=== PATIENT | female | born 1960 | race Caucasian/White ===

== ENCOUNTER 2020-09-19 14:54 | Emergency (ER) | payer BC ==
--- NOTE | 2020-09-19 15:05 | EDM.PDOC ---
ED HPI GENERAL MEDICAL PROBLEM - General Chief Complaint: Cardiovascular Problem Stated Complaint: FAST HEART RATE/DIZZY Time Seen by Provider: 09/19/20 15:05 Source of Information: Reports: Patient History Limitations: Reports: No Limitations - History of Present Illness INITIAL COMMENTS - FREE TEXT/NARRATIVE: Sadaf is a 60 yo female with PMH of fibromyalgia and anxiety who presents with c/o elevated heart rate. Reports this afternoon she felt kind of "whoozy" and checked her heart rate and it was 156. She reports she was not lightheaded, just felt "off." Does have hx of sinus tachycardia. Reports 2 years ago she had Holter monitor, EKG and echocardiogram, all of which came back normal. Reports since that time she has intermittently had elevated pulse, mostly during the night. She denies any recent increased stress/anxiety at this time. Does report "anxious" stomach but otherwise is feeling well. Denies any chest pain, shortness of breath, nausea, vomiting, diarrhea, dizziness, syncope, irregular heart rate. She has noticed more constipation and weight gain, so is questioning if maybe her thyroid is off. Also reports intermittently has been having hives off and on for the last 2 months. Has not had any hives recently. Onset: Today Onset Date: 09/19/20 Onset Time: 13:30 Duration: Constant Location: Reports: Chest Improves with: Reports: None Worsens with: Reports: None Associated Symptoms: Denies: Confusion, Chest Pain, Cough, cough w sputum, Diaphoresis, Fever/Chills, Headaches, Loss of Appetite, Malaise, Nausea/Vomiting, Rash, Seizure, Shortness of Breath, Syncope, Weakness - Related Data Allergies Allergy/AdvReac Type Severity Reaction Status Date / Time Penicillins Allergy Cannot Verified 09/19/20 14:58 Remember Sulfa (Sulfonamide Allergy Cannot Verified 09/19/20 14:58 Antibiotics) Remember Tetracyclines Allergy Cannot Verified 09/19/20 14:58 Remember Home Meds: Home Meds Multivitamin [Multivitamins] 1 cap PO DAILY 09/06/16 [History] [employer] Fatty Acids [Fish Oil] 1,000 mg PO DAILY 09/06/16 [History] Sertraline HCl [Zoloft] 100 mg PO DAILY 09/06/16 [History] Calc/D3/Mag/Zn/Timothy/Kumar/[place] [Calcium 600 MG Plus Vit D] 1 each PO BID 09/19/20 [History] Cholecalciferol (Vitamin D3) [Vitamin D3] 1,000 unit PO DAILY 09/19/20 [History] ED ROS GENERAL - Review of Systems Review Of Systems: Comprehensive ROS is negative, except as noted in HPI. ED EXAM, GENERAL - Physical Exam Exam: See Below Exam Limited By: No Limitations General Appearance: Alert, WD/WN, No Apparent Distress Eye Exam: Bilateral Eye: EOMI, PERRL Ears: Normal External Exam, Normal Canal, Hearing Grossly Normal, Normal TMs Nose: Normal Inspection, Normal Mucosa, No Blood Throat/Mouth: Normal Inspection, Normal Lips, Normal Teeth, Normal Gums, Normal Oropharynx, Normal Voice, No Airway Compromise Head: Atraumatic, Normocephalic Neck: Normal Inspection, Supple, Non-Tender, Full Range of Motion Respiratory/Chest: No Respiratory Distress, Lungs Clear, Normal Breath Sounds, No Accessory Muscle Use, Chest Non-Tender Cardiovascular: Normal Peripheral Pulses, No Edema, No Murmur, Tachycardia, Other (Regular Rhythm) Peripheral Pulses: 2+: Dorsalis Pedis (L), Dorsalis Pedis (R) GI/Abdominal: Normal Bowel Sounds, Soft, Tender (mild tenderness periumbilical). No: Guarding, Rigid, Rebound Back Exam: Normal Inspection, Full Range of Motion. No: CVA Tenderness (L), CVA Tenderness (R) Extremities: Normal Inspection, Normal Range of Motion, Non-Tender, Normal Capillary Refill, No Pedal Edema Neurological: Alert, Oriented, CN II-XII Intact, Normal Cognition, Normal Gait, Normal Reflexes, No Motor/Sensory Deficits Psychiatric: Normal Affect, Normal Mood Skin Exam: Warm, Dry, Intact, Normal Color, No Rash Lymphatic: No Adenopathy #1 Interpretation EKG Date: 09/19/20 Rhythm: Other (sinus tachycardia) [place]: Normal P-Wave: Present QRS: Normal ST-T: Normal QT: Normal Comparison: No Change Course - Vital Signs Last Recorded V/S: Last Vital Signs Temp 98.6 F 09/19/20 15:16 Pulse 125 H 09/19/20 15:16 Resp 20 09/19/20 15:16 BP 153/77 H 09/19/20 15:16 Pulse Ox 99 09/19/20 15:16 - Orders/Labs/Meds Labs: Laboratory Tests 09/19/20 09/19/20 Range/Units 15:05 15:05 WBC 9.9 (5.0-10.0) 10^3/uL RBC 4.55 (4.00-5.50) 10^6/uL Hgb 14.0 (12.0-16.0) g/dL Hct 40.8 (37.0-47.0) % MCV 89.7 (82.0-94.0) fL MCH 30.8 (27.0-32.0) pg MCHC 34.3 (33.0-38.0) g/dL RDW Coeff of Preethi 12.7 (11.0-15.0) % Plt Count 234 (150-400) 10^3/uL Neut % (Auto) 53.1 (35-85) % Lymph % (Auto) 40.2 (10-55) % [place] % (Auto) 5.7 (0-16) % Eos % (Auto) 0.5 (0-5) % Baso % (Auto) 0.5 (0-3) % Neut # (Auto) 5.23 (1.80-7.00) 10^3/uL Lymph # (Auto) 3.96 (1.00-4.80) 10^3/uL [place] # (Auto) 0.56 (0.00-0.80) 10^3/uL Eos # (Auto) 0.05 (0.00-0.45) 10^3/uL Baso # (Auto) 0.05 10^3/uL Sodium 143 (136-145) mEq/L Potassium 3.3 L (3.5-5.0) mEq/L Chloride 103 (98-106) mEq/L Carbon Dioxide 26 (21-32) mmol/L BUN 17 (7-18) mg/dL Creatinine 0.7 (0.6-1.0) mg/dL Est Cr Clr Drug Dosing TNP Estimated GFR (MDRD) > 60 (>=60) mL/min Glucose 134 H (75-99) mg/dL Calcium 9.5 (8.4-10.1) mg/dL Troponin I < 0.017 (0.00-0.06) ng/mL C-Reactive Protein 0.2 (0.2-0.8) mg/dL TSH, Ultra Sensitive 3.75 (0.36-5.60) uIU/mL Meds: Medications Discontinued Medications Generic Name Dose Route Start Last Admin Trade Name Carlos PRN Reason Stop Dose Admin Potassium Chloride 40 meq 09/19/20 15:34 09/19/20 15:41 Klor-Con 10 PO 09/19/20 15:35 40 meq ONETIME ONE Administration - Re-Assessments/Exams Free Text/Narrative Re-Assessment/Exam: 09/19/20 15:33 Labs all stable except potassium slightly low at 3.3. Will replace with 40 meq CL PO. Will keep patient in extended ED for continued cardiac monitoring. Departure - Departure Time of Disposition: 17:04 Disposition: Home, Self-Care 01 Condition: Good Clinical Impression: Sinus tachycardia, Hypokalemia Instructions: Hypokalemia, Sinus Tachycardia Referrals: Kelsie Morocho [employer] SLIDE OPERATOR [Primary Care Provider] - Forms: ED Department Discharge Additional Instructions: - Increase dietary intake of potassium rich foods - Recommend recheck potassium in 1 week - Follow up with PCP in next 5-7 days if symptoms persist or sooner if symptoms worsen - Return to ED for emergent needs Sepsis Event Note (ED) - Focused Exam Vital Signs: Vital Signs Temp Pulse Resp BP Pulse Ox 09/19/20 15:16 98.6 F 125 H 20 153/77 H 99 - Problem List & Annotations (1) Hypokalemia SNOMED Code(s): 76736965 Code(s): E87.6 - HYPOKALEMIA Status: Acute (2) Sinus tachycardia SNOMED Code(s): 31118725 Code(s): R00.0 - TACHYCARDIA, UNSPECIFIED Status: Acute - Problem List Review Problem List Initiated/Reviewed/Updated: Yes - Assessment/Plan Assessment:: Sinus Tachycardia Hypokalemia Plan: Patient presents with new onset tachycardia. Reports it was as high as 156 bpm on her apple watch prior to arrival. Upon arrival HR at 126. EKG reveals sinus tachycardia at rate of 126. She denies any other symptoms or recent illness. Does have anxiety and feels this may be contributing. Labs stable except potassium low at 3.3. Was given 40 meq KCL. Recommend increasing dietary intake of potassium and recheck K in 7 days. Patient was kept for cardiac monitoring in extended ED. Patient remained NSR throught stay. At time of discharge pulse was 90s. She is advised to follow up with her PCP for recheck if tachycardiac worsens or persists. She verbalized understanding and was agreeable with plan. Discharged home in satisfactory condition.
[2020-09-19 15:17] VITALS: BP 153/77; PULSE 125
[2020-09-19 15:28] LABS: CHLORIDE,CL 103 mEq/L (98-106); SODIUM,NA 143 mEq/L (136-145)
[2020-09-19] MEDS ORDERED: Potassium Chloride 10 MEQ Tab.ER PO ONE (15:34)
== END 2020-09-19 17:30 | disposition home or self-care (01) ==
LOC: CC.ED 14:54
DX: E87.6 Hypokalemia (principal); R00.0 Tachycardia, unspecified; Z88.0 Allergy status to penicillin; Z88.2 Allergy status to sulfonamides; Z88.1 Allergy status to other antibiotic agents
CPT/HCPCS: 36415; 80048; 84443; 84484; 85025; 86140; 93005; 99285-25; A9270-GY

== ENCOUNTER 2021-03-27 07:29 | Emergency (ER) | payer BC ==
[2021-03-27] MEDS ORDERED: Sodium Chloride 0.9% 1,000 ML IV SCH (08:00)
--- NOTE | 2021-03-27 08:09 | EDM.PDOC ---
ED HPI GENERAL MEDICAL PROBLEM - General Chief Complaint: Gastrointestinal Problem Stated Complaint: diarrhea and dehydration Time Seen by Provider: 03/27/21 07:55 Source of Information: Reports: Patient History Limitations: Reports: No Limitations - History of Present Illness INITIAL COMMENTS - FREE TEXT/NARRATIVE: This patient is a 60 year old female that presents to the ER. She reports that she has had abdominal cramping, diarrhea, and fever for 3 days. Patient reports that her daughter had similar symptoms 2 days ago, but hers resolved. Patient reports that hers has not resolved. She reports that this morning she felt weak while on the toilet while having a BM. She reports she is having diarrhea about every 2 hours. She reports her fever at home has been running 100.2 - 100.4. Patient denies nausea or vomiting. Onset Date: 03/24/21 Duration: Day(s): (3) Location: Reports: Abdomen Quality: Reports: Other (cramping) Severity: Mild Improves with: Reports: None Worsens with: Reports: None Associated Symptoms: Reports: Weakness (generally weak). Denies: Confusion, Chest Pain, Cough, cough w sputum, Diaphoresis, Fever/Chills, Headaches, Loss of Appetite, Malaise, Nausea/Vomiting, Rash, Seizure, Shortness of Breath, Syncope Abdominal Pain Score (Numeric/FACES): 9 - Related Data Allergies Allergy/AdvReac Type Severity Reaction Status Date / Time coconut Allergy Hives Verified 03/27/21 07:46 Penicillins Allergy Cannot Verified 03/27/21 07:46 Remember Sulfa (Sulfonamide Allergy Cannot Verified 03/27/21 07:46 Antibiotics) Remember Tetracyclines Allergy Cannot Verified 03/27/21 07:46 Remember Home Meds: Home Meds Multivitamin [Multivitamins] 1 cap PO DAILY 09/06/16 [History] [place]-3 Fatty Acids [Fish Oil] 1,000 mg PO DAILY 09/06/16 [History] Sertraline HCl [Zoloft] 100 mg PO DAILY 09/06/16 [History] Calc/D3/Mag/Zn/Timothy/Kumar/[place] [Calcium 600 MG Plus Vit D] 1 each PO BID 09/19/20 [History] Cholecalciferol (Vitamin D3) [Vitamin D3] 1,000 unit PO DAILY 09/19/20 [History] Past Medical History Other Cardiovascular History: Hx of fast heart rate Psychiatric History: Reports: Anxiety - Past Surgical History Female Surgical History: Reports: D&C Social & Family History - Family History Family Medical History: Unobtainable - Tobacco Use Tobacco Use Status *Q: Never Tobacco User - Recreational Drug Use Recreational Drug Use: No ED ROS GENERAL - Review of Systems Review Of Systems: See Below Constitutional: Reports: No Symptoms HEENT: Reports: No Symptoms Respiratory: Reports: No Symptoms Cardiovascular: Reports: No Symptoms Endocrine: Reports: No Symptoms GI/Abdominal: Reports: Abdominal Pain (cramping), Diarrhea. Denies: Nausea, Vomiting : Reports: No Symptoms Musculoskeletal: Reports: No Symptoms Skin: Reports: No Symptoms Neurological: Reports: No Symptoms Psychiatric: Reports: No Symptoms Hematologic/Lymphatic: Reports: No Symptoms Immunologic: Reports: No Symptoms ED EXAM, GI/ABD - Physical Exam Exam: See Below Exam Limited By: No Limitations General Appearance: Alert, WD/WN, No Apparent Distress Eyes: Bilateral: Normal Appearance Ears: Normal External Exam, Normal Canal, Hearing Grossly Normal, Normal TMs Nose: Normal Inspection, Normal Mucosa, No Blood Throat/Mouth: Normal Inspection, Normal Lips, Normal Teeth, Normal Gums, Normal Oropharynx, Normal Voice, No Airway Compromise Head: Atraumatic, Normocephalic Neck: Normal Inspection, Supple, Non-Tender, Full Range of Motion Respiratory/Chest: No Respiratory Distress, Lungs Clear, Normal Breath Sounds, No Accessory Muscle Use Cardiovascular: No Edema, Tachycardia (1204 on exam) GI/Abdominal Exam: Soft, Non-Tender, Abnormal Bowel Sounds (hyperactive). No: Guarding, Rigid, Rebound, Tender (Female) Exam: Deferred Back Exam: Normal Inspection, Full Range of Motion. No: CVA Tenderness (L), CVA Tenderness (R) Extremities: Normal Inspection, Normal Range of Motion, Non-Tender, No Pedal Edema, Normal Capillary Refill Neurological: Alert, Oriented, Normal Cognition Psychiatric: Normal Affect, Normal Mood Skin Exam: Warm, Dry, Intact, Normal Color, No Rash Lymphatic: No Adenopathy Course - Vital Signs Last Recorded V/S: Last Vital Signs Temp 98.2 F 03/27/21 07:29 Pulse 99 03/27/21 08:30 Resp 18 03/27/21 08:30 BP 135/78 03/27/21 08:30 Pulse Ox 99 03/27/21 08:30 - Orders/Labs/Meds Orders: Active Orders 24 hr Category Date Time Status C DIFFICILE BY DNA [RM] Stat Lab 03/27/21 08:49 Received STOOL CULTURE [MREF] Stat Lab 03/27/21 08:49 Received WBC, STOOL [OP] Stat Lab 03/27/21 08:49 Received Sodium Chloride 0.9% [Normal Saline] 1,000 ml Med 03/27/21 08:00 Active IV ASDIRECTED Isolation [COMM] Stat Oth 03/27/21 08:05 Active Medication Orders Sodium Chloride (Normal Saline) 1,000 mls @ 999 mls/hr IV ASDIRECTED AILYN Last Admin: 03/27/21 08:03 Dose: 999 mls/hr Documented by: GARY Labs: Laboratory Tests 03/27/21 03/27/21 03/27/21 Range/Units 08:03 08:12 08:12 WBC 4.7 (4.0-11.0) 10^3/uL RBC 4.30 (4.00-5.50) x10^6/uL Hgb 13.0 (12.0-16.0) g/dL Hct 38.0 (37.0-47.0) % MCV 88.4 (83.0-97.0) fL MCH 30.2 (27.0-32.0) pg MCHC 34.2 (32.0-36.0) g/dL RDW Coeff of Preethi 12.4 (11.0-15.0) % Plt Count 169 (150-400) 10^3/uL Immature Gran % (Auto) 0.2 (0.0-4.9) % Neut % (Auto) 67.5 (41-71) % Lymph % (Auto) 22.9 L (24-44) % [place] % (Auto) 9.2 (0-10) % Eos % (Auto) 0.0 (0-6) % Baso % (Auto) 0.2 (0-1) % Neut # (Auto) 3.16 (1.80-8.00) x10^3/uL Lymph # (Auto) 1.07 (0.60-5.00) 10^3/uL [place] # (Auto) 0.43 (0.00-1.50) 10^3/uL Eos # (Auto) 0.00 (0.00-1.50) 10^3/uL Baso # (Auto) 0.01 (0.00-0.50) 10^3/uL Immature Gran # (Auto) 0.01 (0.00-0.49) 10^3/uL Sodium 140 (136-145) mEq/L Potassium 3.4 L (3.5-5.0) mEq/L Chloride 104 (98-106) mEq/L Carbon Dioxide 26 (21-32) mmol/L BUN 10 (7-18) mg/dL Creatinine 0.7 (0.6-1.0) mg/dL Est Cr Clr Drug Dosing 75.65 mL/min Estimated GFR (MDRD) > 60 (>=60) mL/min Glucose 137 H (75-99) mg/dL Lactic Acid (0.4-2.0) mmol/L Calcium 8.2 L (8.4-10.1) mg/dL Total Bilirubin 0.4 (0.0-1.0) mg/dL AST 21 (15-37) U/L ALT 30 (12-78) U/L Alkaline Phosphatase 59 (46-116) U/L C-Reactive Protein 1.8 H (0.2-0.8) mg/dL Total Protein 6.7 (6.4-8.2) g/dL Albumin 3.2 L (3.4-5.0) g/dL Amylase 33 (25-115) U/L Lipase 36 L (73-393) U/L Urine Color Yellow (YELLOW) Urine Appearance Clear (CLEAR) Urine pH 5.5 (4.5-8.0) Ur Specific [place] 1.025 H (1.003-1.020) Urine Protein Negative (NEGATIVE) mg/dL Urine Glucose (UA) Negative (NEGATIVE) mg/dL Urine Ketones >=160 H (NEGATIVE) mg/dL Urine Occult Blood Small H (NEGATIVE) Urine Nitrite Negative (NEGATIVE) Urine Bilirubin Small H (NEGATIVE) Urine Urobilinogen 0.2 (0.2-1.0) EU/dL Ur Leukocyte Esterase Negative (NEGATIVE) Urine RBC 0-5 (0-5) /HPF Urine WBC Not seen (0-5) /HPF Ur Squamous Epith Cells Occasional H (NOT SEEN) /HPF Urine Bacteria Few H (NOT SEEN) /HPF 08/02/21 Range/Units 08:12 WBC (4.0-11.0) 10^3/uL RBC (4.00-5.50) x10^6/uL Hgb (12.0-16.0) g/dL Hct (37.0-47.0) % MCV (83.0-97.0) fL MCH (27.0-32.0) pg MCHC (32.0-36.0) g/dL RDW Coeff of Preethi (11.0-15.0) % Plt Count (150-400) 10^3/uL Immature Gran % (Auto) (0.0-4.9) % Neut % (Auto) (41-71) % Lymph % (Auto) (24-44) % [place] % (Auto) (0-10) % Eos % (Auto) (0-6) % Baso % (Auto) (0-1) % Neut # (Auto) (1.80-8.00) x10^3/uL Lymph # (Auto) (0.60-5.00) 10^3/uL [place] # (Auto) (0.00-1.50) 10^3/uL Eos # (Auto) (0.00-1.50) 10^3/uL Baso # (Auto) (0.00-0.50) 10^3/uL Immature Gran # (Auto) (0.00-0.49) 10^3/uL Sodium (136-145) mEq/L Potassium (3.5-5.0) mEq/L Chloride (98-106) mEq/L Carbon Dioxide (21-32) mmol/L BUN (7-18) mg/dL Creatinine (0.6-1.0) mg/dL Est Cr Clr Drug Dosing mL/min Estimated GFR (MDRD) (>=60) mL/min Glucose (75-99) mg/dL Lactic Acid 0.9 (0.4-2.0) mmol/L Calcium (8.4-10.1) mg/dL Total Bilirubin (0.0-1.0) mg/dL AST (15-37) U/L ALT (12-78) U/L Alkaline Phosphatase (46-116) U/L C-Reactive Protein (0.2-0.8) mg/dL Total Protein (6.4-8.2) g/dL Albumin (3.4-5.0) g/dL Amylase (25-115) U/L Lipase (73-393) U/L Urine Color (YELLOW) Urine Appearance (CLEAR) Urine pH (4.5-8.0) Ur Specific [place] (1.003-1.020) Urine Protein (NEGATIVE) mg/dL Urine Glucose (UA) (NEGATIVE) mg/dL Urine Ketones (NEGATIVE) mg/dL Urine Occult Blood (NEGATIVE) Urine Nitrite (NEGATIVE) Urine Bilirubin (NEGATIVE) Urine Urobilinogen (0.2-1.0) EU/dL Ur Leukocyte Esterase (NEGATIVE) Urine RBC (0-5) /HPF Urine WBC (0-5) /HPF Ur Squamous Epith Cells (NOT SEEN) /HPF Urine Bacteria (NOT SEEN) /HPF Meds: Medications Generic Name Dose Route Start Last Admin Trade Name Freq PRN Reason Stop Dose Admin Sodium Chloride 1,000 mls @ 999 mls/hr 03/27/21 08:00 03/27/21 08:03 Normal Saline IV 999 mls/hr ASDIRECTED ON LICENSE OF [facility] Administration - Re-Assessments/Exams Free Text/Narrative Re-Assessment/Exam: 03/27/21 09:34 This patient does not have leukocytosis, no fever, no abdominal tenderness or rebound on exam. Not acute abdomen, will not CT. She reports she feels better after fluids. Her HR is now 99 and improved. Labs are unremarkable. Potassium 3.4, will not treat this at this time, no symptoms. Stool samples sent to lab and can review with PCP. No further treatment at this time., will discharge home, educated when to return and see her PCP. Departure - Departure Time of Disposition: :30 Disposition: Home, Self-Care 01 Condition: Fair Clinical Impression: Viral diarrhea, Dehydration - Discharge Information *PRESCRIPTION DRUG MONITORING PROGRAM REVIEWED*: Not Applicable *COPY OF PRESCRIPTION DRUG MONITORING REPORT IN PATIENT VARSHA: Not Applicable Instructions: Dehydration, Adult, [id number], Diarrhea, Adult, [id number], Clear Liquid Diet, Adult, [id number], Food Choices to Help Relieve Diarrhea, Adult Referrals: PCP,Unknown [Primary Care Provider] - Forms: ED Department Discharge Additional Instructions: Followup with primary care provider this week for recheck: Stool samples review with primary care provider Return to the ER for worsening of condition or any emergent concerns such as severe abdominal pain, vomiting, or other concerns Increase fluids Clear liquid diet and advance as tolerated Tylenol for fever Sepsis Event Note (ED) - Evaluation Sepsis Screening Result: Possible Sepsis Risk - Focused Exam Vital Signs: Vital Signs Temp Pulse Resp BP Pulse Ox 03/27/21 08:30 99 18 135/78 99 03/27/21 07:29 98.2 F 123 H 18 153/75 H 98 - My Orders Last 24 Hours: My Active Orders 03/27/21 08:00 Sodium Chloride 0.9% [Normal Saline] 1,000 ml IV ASDIRECTED 03/27/21 08:05 Isolation [COMM] Stat 03/27/21 08:49 C DIFFICILE BY DNA [RM] Stat STOOL CULTURE [MREF] Stat WBC, STOOL [OP] Stat - Assessment/Plan Last 24 Hours: My Active Orders 03/27/21 08:00 Sodium Chloride 0.9% [Normal Saline] 1,000 ml IV ASDIRECTED 03/27/21 08:05 Isolation [COMM] Stat 03/27/21 08:49 C DIFFICILE BY DNA [RM] Stat STOOL CULTURE [MREF] Stat WBC, STOOL [OP] Stat Plan: PLEASE SEE RN NOTE FOR PFSH
[2021-03-27 08:29] LABS: CHLORIDE,CL 104 mEq/L (98-106); SODIUM,NA 140 mEq/L (136-145)
[2021-03-27 08:31] VITALS: BP 135/78; PULSE 99
== END 2021-03-27 09:39 | disposition home or self-care (01) ==
LOC: CC.ED 07:29
DX: E86.0 Dehydration (principal); A08.4 Viral intestinal infection, unspecified; Z91.018 Allergy to other foods; Z88.0 Allergy status to penicillin; Z88.2 Allergy status to sulfonamides; Z88.1 Allergy status to other antibiotic agents; Z79.899 Other long term (current) drug therapy
CPT/HCPCS: 36415; 80053; 81001; 82150; 83605; 83690; 85025; 86140; 87045; 87046; 87493; 89055; 99284; J7030